=== PATIENT | female | born 1995 | race Caucasian/White ===

== ENCOUNTER 2022-09-21 13:54 | Outpatient (CLI) | payer SELFPAY ==
--- NOTE | ~2022-09-21 | US_ITS ---
EXAMINATION: US OB transvaginal DATE: 09/21/2022 14:41 INDICATION: First trimester dating TECHNIQUE: Real-time pelvic transabdominal and transvaginal ultrasound was performed. COMPARISON: None. FINDINGS: The uterus measures 11.2 x 5.5 x 5.8 cm. There is an intrauterine gestational sac. A yolk s ac is identified. heart motion is identified measuring 186 beats per minute (bpm) by M-mode Dop pler. The crown rump length measures 5 mm, which correlates with an estimated gestational age o f 6 weeks and 1 day(s) (+/-) 4 day(s). The right ovary measures 2.6 x 1.6 x 2.9 cm. The left ovary measures 3.6 x 2.2 x 2.4 cm. There is nor mal vascular flow in the ovaries. There is no free fluid in the pelvis. IMPRESSION: 1. Live intrauterine with an estimated gestational age of 6 weeks and 1 day(s) (+/-) 4 day( s) and an estimated delivery date of 05/16/2023. Reviewed, dictated and finalized at location [facility]. IMPRESSION: 1. Live intrauterine with an estimated gestational age of 6 weeks and 1 day(s) (+/-) 4 day(s) and an estimated delivery date of 05/16/2023.
== END 2022-09-21 13:55 ==
LOC: MICIMG 13:57
PROVIDERS: PCP Obstetrics & Gynecology Gynecology; Visit Provider Obstetrics & Gynecology Gynecology
DX: Z36.87 Encounter for antenatal screening for uncertain dates (principal); Z3A.01 Less than 8 weeks gestation of pregnancy
CPT/HCPCS: 76817